=== PATIENT | male | born 1970 | race African-American/Black ===

== ENCOUNTER 2020-12-25 17:21 | Emergency (ER) | payer OTHER, MEDICAID ==
[~2020-12-25] VITALS: Ht 193 cm; Wt 77.0 kg
[2020-12-25] MEDS ORDERED: HYDROCODONE/ACETAMINOPHEN 5/325MG TABLET PO ONE (17:45)
[2020-12-25] MEDS ORDERED: ONDANSETRON 4MG ODT PO ONE (17:45)
[2020-12-25 18:16] LABS: BASOPHILS % 0.6 % (0.0-2.0); EOSINOPHILS % 2.1 % (0.0-5.0); HEMATOCRIT. 34.5 % (42.0-52.0); HEMOGLOBIN. 11.5 g/dL (14.0-18.0); LYMPHOCYTES % 11.6 % (20.0-50.0); MEAN CORPUSCULAR HEMOGLOBIN 37.9 pg (28.0-32.0); MEAN CORPUSCULAR VOLUME 113.4 fL (80.0-94.0); MEAN PLATELET VOLUME 7.5 fl (7.4-10.4); MONOCYTES % 10.4 % (2.0-8.0); NEUTROPHILS % 75.3 % (40.0-76.0); PLATELET 259 x1000/uL (130-400); RED BLOOD CELL COUNT 3.05 mill/uL (4.7-6.1); RED CELL DISTRIBUTION WIDTH 12.9 % (11.6-14.6)
[2020-12-25 18:23] LABS: CHLORIDE 110 mEq/L (98-107)
[2020-12-25 18:27] LABS: PROTHROMBIN TIME 10.4 sec (9.6-11.0)
[2020-12-25 18:28] LABS: ETHANOL BLOOD 35 mg/dL
[2020-12-25 18:40] LABS: PLATELET ESTIMATE NORMAL
[2020-12-25 19:16] LABS: CLARITY URINE CLEAR (CLEAR); COLOR URINE YELLOW (YELLOW); KETONES URINE NEGATIVE (NEGATIVE); LEUKOCYTE ESTERASE URINE TRACE (NEGATIVE); NITRITE URINE NEGATIVE (NEGATIVE); OCCULT BLOOD URINE NEGATIVE (NEGATIVE); PROTEIN URINE NEGATIVE (NEGATIVE); SPECIFIC GRAVITY URINE 1.014 (1.005-1.030); UROBILINOGEN URINE 0.2 E.U./dL (0.2-1.0)
[2020-12-25 19:25] VITALS: BP 131/86
[2020-12-25 19:28] LABS: *AMPHETAMINES SCREEN URINE NEGATIVE (NEGATIVE); *BARBITURATES SCREEN URINE NEGATIVE (NEGATIVE); *BENZODIAZEPINES SCREEN URINE NEGATIVE (NEGATIVE); *COCAINE SCREEN URINE NEGATIVE (NEGATIVE); METHADONE URINE SCREEN NEGATIVE (NEGATIVE); OPIATES URINE SCREEN NEGATIVE (NEGATIVE)
[2020-12-25 19:29] LABS: CANNABINOID URINE SCREEN PRESUMTIVE POSITIVE (NEGATIVE); PHENCYCLIDINE URINE SCREEN NEGATIVE (NEGATIVE)
== END 2020-12-25 19:45 | disposition home or self-care (01) ==
LOC: ER 17:21
DX: R07.89 Other chest pain (principal); F10.10 Alcohol abuse, uncomplicated; G40.909 Epilepsy, unspecified, not intractable, without status epilepticus; Y90.1 Blood alcohol level of 20-39 mg/100 ml; Z98.890 Other specified postprocedural states; Z87.828 Personal history of other (healed) physical injury and trauma
CPT/HCPCS: 36415; 71045; 80053; 80305; 80320; 81003; 84484; 85025; 85610; 93005; 99285; Q0162; G0480

== ENCOUNTER 2020-12-25 23:46 | Emergency (ER) | payer MEDICAID, OTHER ==
[~2020-12-25] VITALS: Ht 182.9 cm; Wt 78.0 kg
[2020-12-26] MEDS ORDERED: IBUPROFEN 600MG TABLET PO ONE (00:30)
[2020-12-26 00:38] LABS: HEMATOCRIT 34.2 % (42.0-52.0); HEMOGLOBIN 11.7 g/dL (14.0-18.0); MEAN CORPUSCULAR HEMOGLOBIN 38.4 pg (28.0-32.0); PLATELET 245 x1000/uL (130-400); RED BLOOD CELL COUNT 3.05 mill/uL (4.7-6.1); RED CELL DISTRIBUTION WIDTH 12.6 % (11.6-14.6)
[2020-12-26 04:45] VITALS: BP 126/75
== END 2020-12-26 05:03 | disposition home or self-care (01) ==
LOC: ER 23:46
DX: K92.2 Gastrointestinal hemorrhage, unspecified (principal); R56.9 Unspecified convulsions
CPT/HCPCS: 36415; 85027; 93005; 99283

== ENCOUNTER 2021-12-02 16:49 | Emergency (ER) | payer MEDICAID, OTHER ==
[~2021-12-02] VITALS: Ht 188 cm; Wt 78.0 kg
[2021-12-02] MEDS ORDERED: HYDROCODONE/ACETAMINOPHEN 5/325MG TABLET PO ONE (17:15)
[2021-12-02] MEDS ORDERED: LIDOCAINE HCL/EPINEPHRINE 1%-EPI 1:100,000 20 ML VIAL INFIL ONE (17:15)
[2021-12-02] MEDS ORDERED: BACITRACIN ZINC OINT UDPKT TOP ONE (17:15)
[2021-12-02] MEDS ORDERED: BACITRACIN ZINC OINT UDPKT TOP NR (17:30)
[2021-12-02] MEDS ORDERED: LIDOCAINE HCL/EPINEPHRINE 1%-EPI 1:100,000 10 ML VIAL INFIL NR (17:30)
[2021-12-02] MEDS ORDERED: HYDROCODONE/ACETAMINOPHEN 5/325MG TABLET PO NR (17:30)
[2021-12-02] MEDS ORDERED: CEPH500T PO (18:51)
[2021-12-02] MEDS ORDERED: IBUP-2029 PO (18:51)
[2021-12-02 19:07] VITALS: BP 149/86
== END 2021-12-02 19:08 | disposition home or self-care (01) ==
LOC: ER 16:49
DX: S51.812A Laceration without foreign body of left forearm, initial encounter (principal); X58.XXXA Exposure to other specified factors, initial encounter; Y93.89 Activity, other specified; Y92.89 Other specified places as the place of occurrence of the external cause; Y99.8 Other external cause status
CPT/HCPCS: 73090; 99283; A4217; Z7610; J3490

== ENCOUNTER 2021-12-05 03:03 | Emergency (ER) | payer MEDICAID ==
[~2021-12-05] VITALS: Ht 190.5 cm; Wt 80.0 kg
[~2021-12-05 03:03] MED LIST: CEPH500T PO; IBUP-2029 PO
[2021-12-05 03:15] VITALS: BP 160/91
== END 2021-12-05 04:09 | disposition home or self-care (01) ==
LOC: ER 03:03
DX: Z48.00 Encounter for change or removal of nonsurgical wound dressing (principal)
CPT/HCPCS: 99281

== ENCOUNTER 2021-12-31 06:15 | Emergency (ER) | payer MEDICAID ==
[~2021-12-31] VITALS: Ht 190.5 cm; Wt 78.0 kg
[2021-12-31 06:23] VITALS: BP 150/88
== END 2021-12-31 06:54 | disposition home or self-care (01) ==
LOC: ER 06:15
DX: Z48.02 Encounter for removal of sutures (principal)
CPT/HCPCS: 99281

== ENCOUNTER 2022-05-20 15:18 | Emergency (ER) | payer SELFPAY ==
[~2022-05-20] VITALS: Ht 193 cm; Wt 80.0 kg
[2022-05-20] MEDS ORDERED: LIDOCAINE HCL/PF 1% 10 MG/ML 5ML VIAL INFIL ONE (15:45)
[2022-05-20] MEDS ORDERED: TETANUS, DIPHTHERIA, PERTUSSIS VAC/PF 0.5ML (>10YR OLD) IM ONE (15:45)
[2022-05-20] MEDS ORDERED: BACITRACIN ZINC OINT UDPKT TOP ONE (15:45)
[2022-05-20] MEDS ORDERED: HYDROCODONE/ACETAMINOPHEN 5/325MG TABLET PO ONE (16:15)
[2022-05-20 16:30] VITALS: BP 112/70
[2022-05-20] MEDS ORDERED: MORPHINE SULFATE 4 MG/ML CPJ (NOT FOR IM USE) IV ONE (16:30)
[2022-05-20] MEDS ORDERED: ONDANSETRON HCL 4MG/2ML INJ IV ONE (16:30)
[2022-05-20] MEDS ORDERED: CEFAZOLIN 1000MG PREMIX 50 ML IV ONE (17:15)
[2022-05-20] MEDS ORDERED: BO1 TP (17:28)
[2022-05-20] MEDS ORDERED: HYDR-4001 MT (17:28)
[2022-05-20] MEDS ORDERED: AMOX1TAB16 MT (17:28)
[2022-05-20] MEDS ORDERED: IBUP-2029 MT (17:28)
== END 2022-05-20 17:44 | disposition home or self-care (01) ==
LOC: ER 15:18
DX: S62.631B Displaced fracture of distal phalanx of left index finger, initial encounter for open fracture (principal); X58.XXXA Exposure to other specified factors, initial encounter; Y93.89 Activity, other specified; Y92.89 Other specified places as the place of occurrence of the external cause; Y99.8 Other external cause status; Z79.899 Other long term (current) drug therapy
CPT/HCPCS: 73130; 90471; 90715; 96374; 99283; J0690; J2270; J2405; J3490

== ENCOUNTER 2022-05-28 23:34 | Emergency (ER) | payer SELFPAY ==
[~2022-05-28] VITALS: Ht 193 cm; Wt 66.0 kg
[~2022-05-28 23:34] MED LIST changes: +AMOX1TAB16 MT; +BO1 TP; +HYDR-4001 MT; +IBUP-2029 MT
[2022-05-29] MEDS ORDERED: TETANUS, DIPHTHERIA, PERTUSSIS VAC/PF 0.5ML (>10YR OLD) IM ONE
[2022-05-29] MEDS ORDERED: BACITRACIN ZINC OINT UDPKT TOP ONE
[2022-05-29] MEDS ORDERED: HYDROCODONE/ACETAMINOPHEN 5/325MG TABLET PO ONE
[2022-05-29] MEDS ORDERED: LIDOCAINE HCL/EPINEPHRINE 1%-EPI 1:100,000 20 ML VIAL INFIL ONE
[2022-05-29 00:22] VITALS: BP 120/76
[2022-05-29] MEDS ORDERED: CEPH500T PO (01:16)
[2022-05-29] MEDS ORDERED: ACET-3163 MT (01:16)
[2022-05-29] MEDS ORDERED: CEPHALEXIN 250MG CAPSULE PO ONE (01:30)
== END 2022-05-29 01:37 | disposition home or self-care (01) ==
LOC: ER 23:34
DX: S41.111A Laceration without foreign body of right upper arm, initial encounter (principal); X99.1XXA Assault by knife, initial encounter; Y93.89 Activity, other specified; Y92.9 Unspecified place or not applicable
CPT/HCPCS: 12002; 71045; 73030; 90715; 99284; J3490

== ENCOUNTER 2023-05-20 21:48 | Emergency (ER) | payer MEDICAID ==
[~2023-05-20] VITALS: Ht 172.7 cm; Wt 80.0 kg
[~2023-05-20 21:48] MED LIST changes: +ACET-3163 MT
[2023-05-20] MEDS ORDERED: FENTANYL CITRATE/PF 50MCG/ML 2ML VIAL IV ONE ×2 (22:00→22:30)
[2023-05-20] MEDS ORDERED: TETANUS, DIPHTHERIA, PERTUSSIS VAC/PF 0.5ML (>10YR OLD) IM ONE (22:30)
[2023-05-20 22:48] LABS: CHLORIDE 108 mEq/L (98-107); INDEX HEMOLYSI 1 (1-3); INDEX ICTERIC 1 (1-4); INDEX LIPEMIC 1 (1-3); POTASSIUM 3.5 mEq/L (3.5-5.1); SODIUM 140 mEq/L (136-145)
[2023-05-20 22:53] LABS: BASOPHILS % 1.1 % (0.0-2.0); EOSINOPHILS % 3.7 % (0.0-5.0); INR 1.1; LYMPHOCYTES % 43.1 % (20.0-50.0); MEAN CORPUSCULAR HEMOGLOBIN 22.6 pg (28.0-32.0); MEAN CORPUSCULAR HGB CONC 28.9 g/dL (31.0-37.0); MEAN CORPUSCULAR VOLUME 78.2 fL (80.0-94.0); MEAN PLATELET VOLUME 8.1 fl (7.4-10.4); NEUTROPHILS % 40.1 % (40.0-76.0); PLATELET 386 x1000/uL (130-400); PROTHROMBIN TIME 11.7 sec (9.6-11.0); RED BLOOD CELL COUNT 2.56 mill/uL (4.7-6.1); RED CELL DISTRIBUTION WIDTH 22.1 % (11.6-14.6); WHITE BLOOD COUNT 7.2 x1000/uL (4.5-11.0)
[2023-05-20 22:54] LABS: DIFFERENTIAL COMMENT 1
[2023-05-20 22:55] LABS: ALANINE AMINOTRANSFERASE 20 IU/L (13-61); ALBUMIN 4.1 g/dL (3.4-5.0); ASPARTATE AMINOTRANSFERASE 27 IU/L (15-37); BILIRUBIN TOTAL 1.1 mg/dL (0.1-1.0); CALCIUM 8.9 mg/dL (8.5-10.1); CARBON DIOXIDE 22 mEq/L (21-32); CREATININE 1.2 mg/dL (0.6-1.3); ETHANOL BLOOD 149 mg/dL (-10); GLUCOSE 98 mg/dL (70-105); PROTEIN TOTAL 7.5 g/dL (6.0-8.3); UREA NITROGEN BLOOD 12 mg/dL (7-21)
[2023-05-20 22:58] LABS: HEMOGLOBIN. 5.8 g/dL (14.0-18.0)
[2023-05-20 22:59] LABS: ADD RBC MORPHOLOGY YES
[2023-05-20] MEDS ORDERED: HYDROMORPHONE HCL/PF 2MG/ML CPJ IV ONE (23:30)
[2023-05-20 23:41] LABS: MICROCYTOSIS 1+; PLATELET ESTIMATE NORMAL
[2023-05-20 23:42] LABS: ANISOCYTOSIS 2+; HYPOCHROMASIA 2+
[2023-05-21] MEDS ORDERED: CEFAZOLIN 1000MG PREMIX 50 ML IV ONE (01:00)
[2023-05-21] MEDS ORDERED: ONDANSETRON HCL 4MG/2ML INJ IV ONE (01:45)
[2023-05-21] MEDS ORDERED: HYDROMORPHONE HCL/PF 2MG/ML CPJ IV ONE ×2 (01:45→04:30)
[2023-05-21] MEDS ORDERED: IOHEXOL-350 100 ML BOTTLE ONE (07:05)
[2023-05-21] MEDS ORDERED: MORPHINE SULFATE 4 MG/ML CPJ (NOT FOR IM USE) IV ONE (10:00)
[2023-05-21 10:23] VITALS: BP 122/80; PULSE 82; RESP 16
== END 2023-05-21 14:12 | disposition left against medical advice (07) ==
LOC: ER 22:14
DX: S41.112A Laceration without foreign body of left upper arm, initial encounter (principal); D64.9 Anemia, unspecified; W45.8XXA Other foreign body or object entering through skin, initial encounter; Y93.89 Activity, other specified; Y92.89 Other specified places as the place of occurrence of the external cause; Y99.8 Other external cause status
CPT/HCPCS: 80053; 80320; 85025; 85610; 86850; 86900; 86901; 86920; 36415; 90715; 12002; 90471; 96375 ×2; 99291; 73206; 96365; 96376; J3010; J1170 ×2; Z7610 ×3; Q9967; J0690; J2405; J2270; 36430; P9016; G0480

== ENCOUNTER 2023-07-07 05:30 | Emergency (ER) | payer MEDICAID ==
[~2023-07-07] VITALS: Ht 193 cm; Wt 68.2 kg
[2023-07-07 05:39] VITALS: BP 147/72; PULSE 98; RESP 18; TEMP 98.7; O2SAT 100
== END 2023-07-07 06:02 | disposition home or self-care (01) ==
LOC: ER 05:30
DX: S61.512D Laceration without foreign body of left wrist, subsequent encounter (principal); Z98.890 Other specified postprocedural states; X58.XXXD Exposure to other specified factors, subsequent encounter
CPT/HCPCS: 99281

== ENCOUNTER 2024-10-26 21:55 | Emergency (ER) | payer SELFPAY ==
[~2024-10-26] VITALS: Ht 188 cm; Wt 86.0 kg
[2024-10-26 22:56] VITALS: O2SAT 100
[2024-10-27] MEDS: LIDOCAINE HCL/PF 1% 10 MG/ML 5ML VIAL INFIL ONE (00:15)
[2024-10-27] MEDS ORDERED: TETANUS, DIPHTHERIA, PERTUSSIS VAC/PF 0.5ML (>10YR OLD) IM ONE (00:15)
[2024-10-27] MEDS: BACITRACIN ZINC OINT UDPKT TOP NR (03:15)
[2024-10-27] MEDS: LIDOCAINE HCL/PF 1% 10 MG/ML 5ML VIAL INFIL NR (03:15)
[2024-10-27] MEDS: BACITRACIN ZINC OINT UDPKT TOP ONE (03:17)
[2024-10-27] MEDS: TETANUS, DIPHTHERIA, PERTUSSIS VAC/PF 0.5ML (>10YR OLD) IM ONE (03:20)
[2024-10-27] MEDS ORDERED: AMOX1TAB16 MT (03:29)
[2024-10-27] MEDS: KETOROLAC 15MG/ML VIAL IM ONE (03:53)
[2024-10-27 04:00] VITALS: BP 126/69; PULSE 88; RESP 18; TEMP 37.05852; O2SAT 100
== END 2024-10-27 05:00 | disposition home or self-care (01) ==
LOC: ER 21:55
DX: L03.012 Cellulitis of left finger (principal); Z98.890 Other specified postprocedural states
CPT/HCPCS: 10060; 99284; 90715; 90471; 96372; J1885; J3490; Z7610 ×3; C1893; 26010

== ENCOUNTER 2024-11-27 15:45 | Emergency (ER) | payer MEDICAID ==
[~2024-11-27] VITALS: Ht 195.6 cm; Wt 77.1 kg
[2024-11-27 15:47] VITALS: O2SAT 99
[2024-11-27 16:02] VITALS: BP 121/73; PULSE 105; RESP 16; TEMP 36.9; O2SAT 100
[2024-11-27] MEDS ORDERED: LIDOCAINE HCL 1% 20ML VIAL INFIL ONE (18:00)
[2024-11-27] MEDS ORDERED: SULF1TAB48 MT (18:48)
== END 2024-11-27 19:00 | disposition home or self-care (01) ==
LOC: ER 15:45
DX: L03.012 Cellulitis of left finger (principal)
CPT/HCPCS: 10060; 99283

== ENCOUNTER 2025-09-08 17:08 | Inpatient (IN) | payer SELFPAY ==
[~2025-09-08] VITALS: Ht 188 cm; Wt 76.7 kg
[~2025-09-08 17:08] MED LIST changes: +IBUP-1455 MT; +IBUP-1455 PO; -IBUP-2029 MT; -IBUP-2029 PO; +SULF1TAB48 MT
[2025-09-08 17:10] VITALS: O2SAT 99
[2025-09-08 18:05] LABS: CREATININE 1.1 mg/dL (0.6-1.3); UREA NITROGEN BLOOD 6 mg/dL (9-23)
[2025-09-08 18:13] LABS: BASOPHILS % 1.8 % (0.0-2.0); EOSINOPHILS % 3.3 % (0.0-5.0); LYMPHOCYTES % 24.6 % (20.0-50.0); MEAN PLATELET VOLUME 7.6 fl (7.4-10.4); MONOCYTES % 11.5 % (2.0-8.0); NEUTROPHILS % 58.8 % (40.0-76.0); PLATELET 609 x1000/uL (130-400); RED BLOOD CELL COUNT 1.75 mill/uL (4.7-6.1); RED CELL DISTRIBUTION WIDTH 30.4 % (11.6-14.6)
[2025-09-08 18:24] LABS: HEMATOCRIT. 12.9 % (42.0-52.0); HEMOGLOBIN. 3.7 g/dL (14.0-18.0)
[2025-09-08 18:25] LABS: ADD RBC MORPHOLOGY YES
[2025-09-08 18:37] LABS: TROPONIN I HIGH SENSITIVITY < 4 ng/L (3.0-53)
[2025-09-08 18:38] LABS: ASPARTATE AMINOTRANSFERASE 20 IU/L (<34); BILIRUBIN DIRECT 0.3 mg/dL (<=3.0); BILIRUBIN TOTAL 0.8 mg/dL (0.1-1.0); PROTEIN TOTAL 6.6 g/dL (6.0-8.3)
[2025-09-08] MEDS: SODIUM CHLORIDE 0.9% 1,000 ML IV ONE (18:40)
[2025-09-08 19:01] LABS: INR 1.1
[2025-09-08 20:18] VITALS: RESP 28
[2025-09-08] MEDS ORDERED: CLONIDINE 0.1MG TABLET PO PRN (20:30)
[2025-09-08] MEDS ORDERED: ACETAMINOPHEN 650MG/20.3ML UDC GT PRN (20:30)
[2025-09-08] MEDS ORDERED: MAGNESIUM/ALUMINUM HYDROXIDE/SIMETHICONE 30ML UDC PO PRN (20:30)
[2025-09-08] MEDS ORDERED: GUAIFENESIN 200MG/10ML SUGAR FREE UDC PO PRN (20:30)
[2025-09-08] MEDS ORDERED: ACETAMINOPHEN 325MG TABLET PO PRN (20:30)
[2025-09-08] MEDS ORDERED: IPRATROPIUM/ALBUTEROL 0.5-3(2.5)MG/3ML NEB HHN PRN (20:30)
[2025-09-08] MEDS ORDERED: DOCUSATE SODIUM 100MG CAPSULE PO PRN (20:30)
[2025-09-08] MEDS: POTASSIUM CHLORIDE 20MEQ/PACKET PO ONE (20:52)
[2025-09-08 21:07] LABS: CLARITY URINE CLEAR (CLEAR); COLOR URINE YELLOW (YELLOW); GLUCOSE URINE NEGATIVE (NEGATIVE); KETONES URINE NEGATIVE (NEGATIVE); LEUKOCYTE ESTERASE URINE 1+ (NEGATIVE); NITRITE URINE NEGATIVE (NEGATIVE); OCCULT BLOOD URINE NEGATIVE (NEGATIVE); PH URINE 6.0 (4.5-8.0); PROTEIN URINE NEGATIVE (NEGATIVE); SPECIFIC GRAVITY URINE 1.015 (1.005-1.030); UROBILINOGEN URINE 1.0 E.U./dL (0.2-1.0)
[2025-09-08 21:23] LABS: *AMPHETAMINES SCREEN URINE NEGATIVE (NEGATIVE); *BARBITURATES SCREEN URINE NEGATIVE (NEGATIVE); *BENZODIAZEPINES SCREEN URINE NEGATIVE (NEGATIVE); *COCAINE SCREEN URINE NEGATIVE (NEGATIVE); METHADONE URINE SCREEN NEGATIVE (NEGATIVE); OPIATES URINE SCREEN NEGATIVE (NEGATIVE)
[2025-09-08 21:24] LABS: CANNABINOID URINE SCREEN PRESUMPTIVE POSITIVE (NEGATIVE); ECSTASY MDMA SCREEN URINE NEGATIVE (NEGATIVE); PHENCYCLIDINE URINE SCREEN NEGATIVE (NEGATIVE)
[2025-09-08 21:31] LABS: BACTERIA URINE TRACE; RBC URINE 0-2 /hpf (0-2); SQUAMOUS EPITHELIAL CELL URINE FEW /lpf (RARE/1+); WBC URINE 0-2 /hpf (0-2)
[2025-09-08] MEDS ORDERED: LORAZEPAM 2MG/ML UD SYRINGE IV PRN (23:15)
[2025-09-09] VITALS: BP_SYST 102; BP_SYST 94; BP_DIAS 51; BP_DIAS 53; PULSE 82; PULSE 87; RESP 18; TEMP 36.418; TEMP 36.5; O2SAT 100
[2025-09-09 00:06] LABS: PLATELET ESTIMATE MARKEDLY INCREASED
[2025-09-09] MEDS: ONDANSETRON HCL 4MG/2ML INJ IV PRN (00:43)
[2025-09-09] MEDS: LORAZEPAM 2MG/ML UD SYRINGE IV PRN (00:43)
[2025-09-09] MEDS: PANTOPRAZOLE SODIUM 40 MG/VIAL IV SCH (00:44)
[2025-09-09] MEDS: POTASSIUM CHLORIDE 20MEQ/PACKET PO NR (00:44)
[2025-09-09] MEDS: FOLIC ACID 1 MG, THIAMINE HCL 100 MG, MVI, ADULT NO.1 10 ML in DEXTROSE 5% WATER 1,000 ML IV ONE (00:44)
[2025-09-09] MEDS ORDERED: FOLIC ACID 1 MG, THIAMINE HCL 100 MG, MVI, ADULT NO.1 10 ML in DEXTROSE 5% WATER 1,000 ML IV ONE (01:00)
[2025-09-09 03:38] LABS: FOLIC ACID (FOLATE) SERUM 9.28 ng/mL (>5.38)
[2025-09-09 03:39] LABS: VITAMIN B12 SERUM 264 pg/mL (211-911)
[2025-09-09 03:51] VITALS: BP 99/50; PULSE 74; RESP 18; TEMP 36.6; O2SAT 99
[2025-09-09 07:23] LABS: CREATININE 1.0 mg/dL (0.6-1.3)
[2025-09-09 07:24] LABS: UREA NITROGEN BLOOD 6 mg/dL (9-23)
[2025-09-09 07:25] LABS: ASPARTATE AMINOTRANSFERASE 18 IU/L (<34); BILIRUBIN DIRECT 0.6 mg/dL (<=3.0); BILIRUBIN TOTAL 1.6 mg/dL (0.1-1.0); PROTEIN TOTAL 5.7 g/dL (6.0-8.3)
[2025-09-09 07:26] LABS: T4 FREE 0.99 ng/dL (0.89-1.76)
[2025-09-09 07:37] LABS: BASOPHILS % 1.2 % (0.0-2.0); EOSINOPHILS % 3.6 % (0.0-5.0); LYMPHOCYTES % 17.6 % (20.0-50.0); MEAN PLATELET VOLUME 7.7 fl (7.4-10.4); MONOCYTES % 9.8 % (2.0-8.0); NEUTROPHILS % 67.8 % (40.0-76.0); PLATELET 535 x1000/uL (130-400); RED BLOOD CELL COUNT 1.76 mill/uL (4.7-6.1); RED CELL DISTRIBUTION WIDTH 26.4 % (11.6-14.6)
[2025-09-09 07:51] LABS: HEMOGLOBIN. 4.1 g/dL (14.0-18.0)
[2025-09-09 07:52] LABS: HEMATOCRIT. 13.3 % (42.0-52.0)
[2025-09-09 08:00] VITALS: BP 100/61; PULSE 90; RESP 20; TEMP 36.8; O2SAT 100
[2025-09-09] MEDS ORDERED: CALCIUM GLUCONATE 1GM PREMIX 50 ML IV NR (10:00)
== END 2025-09-09 08:50 | disposition left against medical advice (07) | DRG 254 ==
LOC: ER 17:08 → EDBEDREQ 20:22 → EDBEDREQTM 20:22 → ENRESERV 21:10 → 7WST 21:27
PROVIDERS: ADMIT Hospitalist; ATTEND Hospitalist
PROC: 30233N1 Transfusion of Nonautologous Red Blood Cells into Peripheral Vein, Percutaneous Approach (ICD-10-PCS; principal; 2025-09-08)
DX: K64.9 Unspecified hemorrhoids (principal); K62.3 Rectal prolapse; D64.9 Anemia, unspecified; F10.10 Alcohol abuse, uncomplicated; F19.10 Other psychoactive substance abuse, uncomplicated; E87.6 Hypokalemia; F41.9 Anxiety disorder, unspecified; F17.210 Nicotine dependence, cigarettes, uncomplicated; Z53.29 Procedure and treatment not carried out because of patient's decision for other reasons; Z79.899 Other long term (current) drug therapy
CPT/HCPCS: 36415; 71045; 80048; 80076; 80305; 81003; 82607; 82728; 82746; 83540; 83550; 83605; 83735; 84145; 84439; 84481; 84484; 85014; 85018; 85025; 85044; 86850; 86900; 86920; 93005; 94070; 94660; 98960; 99285; J0612; J2060; J2405; J2470; J3411; J3490; J7030; J7070; P9016